=== PATIENT | female | born 1965 | race African-American/Black ===

== ENCOUNTER 2017-10-28 12:43 | Outpatient (CLI) | payer OTHER ==
--- NOTE | 2017-10-28 13:20 | RAD ---
LUMBAR SPINE THREE VIEWS: History: Disability evaluation. FINDINGS: The lumbar vertebrae maintain height throughout. The disc spaces are preserved. There is slight anter olisthesis at L4-5 measuring approximately 3 mm. There is mild facet hypertrophy at L4-5 and L5-S1. S mall degenerative osteophytes are seen in the lumbar vertebrae. No other evidence of spondylolisthesi s and no evidence of spondylolysis. IMPRESSION: Degenerative changes of the lumbar spine as detailed above. POS: [facility]
== END 2017-10-28 12:44 | disposition home or self-care (01) ==
LOC: NAV RAD 12:43
PROVIDERS: ATTEND Family Medicine
DX: Z02.71 Encounter for disability determination (principal); M47.896 Other spondylosis, lumbar region
CPT/HCPCS: 72100